=== PATIENT | female | born 1970 | race Hispanic/Latino ===

== ENCOUNTER 2017-08-02 13:09 | Emergency (ER) | payer BC ==
--- NOTE | 2017-08-02 15:06 | EDPHYS ---
Physician Documentation [facility] Name: Nika Pantoja Age: 46 yrs Sex: Female : 1970 Arrival Date: 08/02/2017 Time: 13:10 Bed 23 Private MD: ED Physician Theo Mays HPI: 08/02 13:31 This 46 yrs old Female presents to ER via Wheelchair with complaints of Hip kav Pain, Leg Pain. 16:03 The patient or guardian reports decreased range of motion. that occurred at an unknown kav site, sustained from unknown reason, There is no obvious deformity, The patient is able to self ambulate. The patient is able to bear their full body weight. There is no radiation of the patient's discomfort. The complaints affect the left hip. Onset: The symptoms/episode began/occurred acutely, 1 day(s) ago. Modifying factors: The symptoms are alleviated by remaining still, the symptoms are aggravated by external rotation, weight bearing. Associated signs and symptoms: Loss of consciousness: the patient experienced no loss of consciousness, Pertinent positives: None. Pertinent negatives: None. Severity of symptoms: At their worst the symptoms were severe, just prior to arrival. The patient has not experienced similar symptoms in the past. The patient has not recently seen a physician. Patient reports that she woke up with left hip pain on August 01 and again this morning. pain rated at 10/109. 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 she reports that she "...might have lifted kav someone heavy and pulled this muscle but is not sure of the cause of the acute onset of hip pain". 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 - Social history:: Smoking status: Patient/guardian denies using tobacco. - Family history:: not pertinent. - Hospitalizations: : No recent hospitalization is reported. ROS: 16:06 Constitutional: Negative for fever, chills, and weight loss, Eyes: Negative for injury, kav pain, redness, and discharge, ENT: Negative for injury, pain, and discharge, Neck: Negative for injury, pain, and swelling, Cardiovascular: Negative for chest pain, palpitations, and edema, Respiratory: Negative for shortness of breath, cough, wheezing, and pleuritic chest pain, Abdomen/GI: Negative for abdominal pain, nausea, vomiting, diarrhea, and constipation, Back: Negative for injury and pain, : Negative for injury, bleeding, discharge, and swelling, Skin: Negative for injury, rash, and discoloration, Neuro: Negative for headache, weakness, numbness, tingling, and seizure, Psych: Negative for depression, anxiety, suicide ideation, homicidal ideation, and hallucinations, Allergy/Immunology: Negative for hives, rash, and allergies, Endocrine: Negative for neck swelling, polydipsia, polyuria, polyphagia, and marked weight changes, Hematologic/Lymphatic: Negative for swollen nodes, abnormal bleeding, and unusual bruising. 16:06 MS/extremity: Positive for pain, of the pelvis and left hip. Exam: 16:06 Constitutional: This is a well developed, well nourished patient who is awake, alert, kav and in no acute distress. Head/Face: Normocephalic, atraumatic. Eyes: Pupils equal round and reactive to light, extra-ocular motions intact. Lids and lashes normal. Conjunctiva and sclera are non-icteric and not injected. Cornea within normal limits. Periorbital areas with no swelling, redness, or edema. ENT: Nares patent. No nasal discharge, no septal abnormalities noted. Tympanic membranes are normal and external auditory canals are clear. Oropharynx with no redness, swelling, or masses, exudates, or evidence of obstruction, uvula midline. Mucous membranes moist. Neck: Trachea midline, no thyromegaly or masses palpated, and no cervical lymphadenopathy. Supple, full range of motion without nuchal rigidity, or vertebral point tenderness. No Meningismus. Chest/axilla: Normal chest wall appearance and motion. Nontender with no deformity. No lesions are appreciated. Cardiovascular: Regular rate and rhythm with a normal S1 and S2. No gallops, murmurs, or rubs. Normal PMI, no JVD. No pulse deficits. Respiratory: Lungs have equal breath sounds bilaterally, clear to auscultation and percussion. No rales, rhonchi or wheezes noted. No increased work of breathing, no retractions or nasal flaring. Abdomen/GI: Soft, non-tender, with normal bowel sounds. No distension or tympany. No guarding or rebound. No evidence of tenderness throughout. Back: No spinal tenderness. No costovertebral tenderness. Full range of motion. Skin: Warm, dry with normal turgor. Normal color with no rashes, no lesions, and no evidence of cellulitis. Neuro: Awake and alert, GCS 15, oriented to person, place, time, and situation. Cranial nerves II-XII grossly intact. Motor strength 5/5 in all extremities. Sensory grossly intact. Cerebellar exam normal. Normal gait. Psych: Awake, alert, with orientation to person, place and time. Behavior, mood, and affect are within normal limits. 16:06 Musculoskeletal/extremity: Extremities: noted in the pelvis and left hip: pain, ROM: limited active range of motion, in the left hip, Circulation is intact in all extremities. Sensation intact. Joints: the left hip displays limited range of motion, tenderness, Weight bearing: can bear weight with assistance only, assist x 1, Tendon exam: specific tendon testing normal through active and passive range of motion Vital Signs: 13:22 BP 113 / 78; Pulse 85; Resp 16; Temp 97.4; Pulse Ox 99% on R/A; Weight 77.11 kg; Height hb 4 ft. 11 in. (149.86 cm); Pain 10/10; 16:05 BP 121 / 74; Pulse 68; Resp 19; Pulse Ox 100% on R/A; kr2 17:04 BP 117 / 74; Pulse 75; Resp 15; Pulse Ox 99% on R/A; kr2 17:51 BP 114 / 72; Pulse 75; Resp 16; Pulse Ox 99% on R/A; kr2 13:22 Body Mass Index 34.34 (77.11 kg, 149.86 cm) MDM: 15:07 Patient medically screened. kav 16:42 Data reviewed: vital signs, nurses notes, lab test result(s), urinalysis, negative. ED kav course: continues to c/o left hip pain. 08/02 16:33 Order name: Urine Dipstick--Ancillary (enter results); Complete Time: 16:58 bd 08/02 16:58 Interpretation: UBLD TRACE. kav 08/02 16:06 Order name: Urine Dipstick-Ancillary (obtain specimen); Complete Time: 16:32 kav Administered Medications: 16:00 Drug: Cyclobenzaprine 10 mg Route: PO; kr2 16:55 Follow up: Response: No adverse reaction; Pain is unchanged, physician notified kr2 16:00 Drug: Ibuprofen 800 mg Route: PO; kr2 16:57 Follow up: Response: No adverse reaction; Pain is unchanged, physician notified kr2 16:55 CANCELLED (): morphine 4 mg IVP once kav 16:56 CANCELLED (): Zofran 4 mg IVP once; over 2 minutes kav 16:57 Drug: [place] 10 mg-325 mg 1 tabs Route: PO; kr2 17:30 Follow up: Response: No adverse reaction; Pain is decreased kr2 Disposition: 18:43 Co-signature as Attending Physician, Theo Mays MD. rn Disposition: 08/02/17 17:34 Discharged to Home. Impression: Strain of muscle, fascia and tendon of left hip. - Condition is Stable. - Discharge Instructions: Muscle Strain, [id number]. - Prescriptions for Ibuprofen 800 mg Oral Tablet - take 1 tablet by ORAL route every 12 hours As needed take with food; 20 tablet. Cyclobenzaprine 10 mg Oral Tablet - take 1 tablet by ORAL route every 8 hours As needed; 30 tablet. Tramadol 50 mg Oral Tablet - take 1 tablet by ORAL route every 8 hours as needed; 12 tablet. - Medication Reconciliation Form, Thank You Letter, Antibiotic Education, Prescription Opioid Use form. - Follow up: Private Physician; When: 2 - 3 days; Reason: Recheck today's complaints, Continuance of care, Re-evaluation by your physician. - Problem is new. - Symptoms have improved. Signatures: Dispatcher [employer] EDApryl Sheriff, DIE REPAIR DIE REPAIR ka Theo Mays MD MD rn Kluge, Leah, RN RN lk1 Barbi Leggett, RN RN hb Rody Morillo RN RN kr2 Corrections: (The following items were deleted from the chart) 13:24 13:21 PSHx: None; hb hb 16:55 16:42 morphine 4 mg IVP once ordered. kav kav 16:56 16:42 Zofran 4 mg IVP once; over 2 minutes ordered. kav kav 16:58 16:44 Within normal limits. kav kav 16:58 16:58 Normal except: UBLD TRACE. kav kav
--- NOTE | 2017-08-02 15:06 | ER ---
Nurse's Notes [facility] Name: Nika Pantoja Age: 46 yrs Sex: Female : 1970 Arrival Date: 08/02/2017 Time: 13:10 Bed 23 Private MD: Diagnosis: Strain of muscle, fascia and tendon of left hip Presentation: 08/02 13:20 Presenting complaint: Patient states: Severe LEFT hip pain 02/04 since yesterday. hb Denies injury. Transition of care: patient was not received from another setting of care. Onset of symptoms was August 01, 2017. 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 - Social history:: Smoking status: Patient/guardian denies using tobacco. - Family history:: not pertinent. - Hospitalizations: : No recent hospitalization is reported. Screenin:04 Abuse screen: Denies threats or abuse. Denies injuries from another. Nutritional kr2 screening: No deficits noted. Tuberculosis screening: No symptoms or risk factors identified. Fall Risk Gait- Impaired (20 pts.). Assessment: 15:00 Reassessment: Patient called from Lobby to room with no response. Per ER registration, lk1 patient informed them she was leaving due to wait time at 1440. 15:10 General: Appears in no apparent distress. uncomfortable, well groomed, well developed, kr2 well nourished, Behavior is calm, cooperative, appropriate for age. Pain: Complains of pain in left hip Pain radiates to left leg Pain currently is 10 out of 10 on a pain scale. Quality of pain is described as aching, sharp, shooting, tender, Pain began suddenly, Is continuous, Alleviated by nothing. Aggravated by increased activity, repositioning, weight bearing, Noted to be crying, grimacing. Neuro: Level of Consciousness is awake, alert, obeys commands, Oriented to person, place, time, situation, Appropriate for age. Cardiovascular: Capillary refill < 3 seconds in bilateral fingers Patient's skin is warm and dry. Respiratory: Airway is patent Respiratory effort is even, unlabored, Respiratory pattern is regular, symmetrical. GI: Abdomen is non-distended, obese. : No signs and/or symptoms were reported regarding the genitourinary system. EENT: Oral mucosa is moist. Derm: Skin is intact, is healthy with good turgor, Skin is pink, warm \T\ dry. Musculoskeletal: Circulation, motion, and sensation intact. Range of motion: limited in left hip. Injury Description: Patient denies any injury. States pain came on suddenly at work. 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 16:00 Reassessment: Patient appears in no apparent distress at this time. Patient and/or kr2 family updated on plan of care and expected duration. Pain level reassessed. Patient is alert, oriented x 3, equal unlabored respirations, skin warm/dry/pink. Patient states symptoms have not improved. 17:04 Reassessment: Patient appears in no apparent distress at this time. Patient and/or kr2 family updated on plan of care and expected duration. Pain level reassessed. Patient is alert, oriented x 3, equal unlabored respirations, skin warm/dry/pink. 17:52 Reassessment: Patient appears in no apparent distress at this time. Patient and/or kr2 family updated on plan of care and expected duration. Pain level reassessed. Patient is alert, oriented x 3, equal unlabored respirations, skin warm/dry/pink. Patient states symptoms have improved. Vital Signs: 13:22 BP 113 / 78; Pulse 85; Resp 16; Temp 97.4; Pulse Ox 99% on R/A; Weight 77.11 kg; Height hb 4 ft. 11 in. (149.86 cm); Pain 10/10; 16:05 BP 121 / 74; Pulse 68; Resp 19; Pulse Ox 100% on R/A; kr2 17:04 BP 117 / 74; Pulse 75; Resp 15; Pulse Ox 99% on R/A; kr2 17:51 BP 114 / 72; Pulse 75; Resp 16; Pulse Ox 99% on R/A; kr2 13:22 Body Mass Index 34.34 (77.11 kg, 149.86 cm) hb ED Course: 13:10 Patient arrived in ED. as 13:21 Triage completed. hb 13:24 Arm band placed on left wrist. hb 13:31 Apryl Helms FNP [facility]. kav 13:31 Theo Mays MD is Attending Physician. kav 15:15 Patient has correct armband on for positive identification. Bed in low position. Call kr2 light in reach. Side rails up X2. Adult w/ patient. Pulse ox on. NIBP on. 15:15 Door closed. Warm blanket given. Head of bed elevated. kr2 15:54 Rody Morillo, RN is Primary Nurse. kr2 17:52 No provider procedures requiring assistance completed. Patient did not have IV access kr2 during this emergency room visit. Administered Medications: 16:00 Drug: Cyclobenzaprine 10 mg Route: PO; kr2 16:55 Follow up: Response: No adverse reaction; Pain is unchanged, physician notified kr2 16:00 Drug: Ibuprofen 800 mg Route: PO; kr2 16:57 Follow up: Response: No adverse reaction; Pain is unchanged, physician notified kr2 16:55 CANCELLED (md): morphine 4 mg IVP once kav 16:56 CANCELLED (md): Zofran 4 mg IVP once; over 2 minutes kav 16:57 Drug: [place] 10 mg-325 mg 1 tabs Route: PO; kr2 17:30 Follow up: Response: No adverse reaction; Pain is decreased kr2 Outcome: 15:05 Patient left the ED. lk1 17:34 Discharge ordered by MD. kav 17:52 Discharged to home via wheelchair, with family. kr2 17:52 Condition: improved 17:52 Discharge instructions given to patient, Instructed on discharge instructions, follow up and referral plans. medication usage, Demonstrated understanding of instructions, follow-up care, medications, Prescriptions given X 3. 17:53 Patient left the ED. kr2 Signatures: Apryl Helms, LAST PICKER LAST PICKERSamia Escobar as Emma Shin RN RN lk1 Barbi Leggett RN RN hb Rody Morillo RN RN kr2 Corrections: (The following items were deleted from the chart) 13: 13:20 Acuity: GINA 4 hb hb 13:24 13:21 PSHx: None; hb hb 13:27 13:20 Presenting complaint: Patient states: Left hip pain 02/04 since yesterday. hb hb 16:05 15:15 Pulse ox on. NIBP on. kr2 kr2
[2017-08-02 15:12] VITALS: TEMP 97.4
[2017-08-02] MEDS ORDERED: CYCLOBENZAPRINE 10 MG TAB ONE (16:17)
[2017-08-02] MEDS ORDERED: IBUPROFEN 400 MG TAB ONE (16:17)
[2017-08-02 16:50] LABS: Urine Blood TRACE (NEG); Urine Glucose NEGATIVE (NEG); Urine Protein NEGATIVE (NEG)
[2017-08-02] MEDS ORDERED: HYDROCODONE/APAP 10/325 TAB ONE (17:16)
[2017-08-02 18:05] VITALS: O2SAT 99
[2017-08-02 18:07] VITALS: BP 114/72
== END 2017-08-02 17:53 | disposition home or self-care (01) ==
LOC: ER 13:09
DX: S76.012A Strain of muscle, fascia and tendon of left hip, initial encounter (principal); I10 Essential (primary) hypertension; E11.9 Type 2 diabetes mellitus without complications
CPT/HCPCS: 81003; 99283